=== PATIENT | female | born 1950 | race Caucasian/White ===

== ENCOUNTER 2019-02-07 10:02 | Outpatient (CLI) | payer OTHER | END 2019-02-07 10:10 | disposition home or self-care (01) | LOC: MRI 10:02 | DX: K31.5 Obstruction of duodenum (principal) | CPT/HCPCS: 70551 ==

== ENCOUNTER 2019-03-13 22:32 | Emergency (ER) | payer OTHER ==
[~2019-03-13] VITALS: Ht 160 cm; Wt 58.5 kg
[2019-03-13] MEDS ORDERED: TENORMIN25 MG (22:47)
[2019-03-13] MEDS ORDERED: ASPIR 8181 MG (22:47)
[2019-03-13] MEDS ORDERED: LEVOTHYROXINE25 MCG (22:48)
== END 2019-03-14 02:40 | disposition left against medical advice (07) ==
LOC: ER 22:32
DX: R05 Cough (principal); B34.9 Viral infection, unspecified